=== PATIENT | male | born 1985 | race Caucasian/White ===

== ENCOUNTER 2017-12-07 07:47 | Emergency (ER) | payer OTHER ==
[~2017-12-07] VITALS: Ht 167.6 cm; Wt 94.3 kg
[2017-12-07] MEDS ORDERED: FLONASE 0.05%50 MCG NASAL (09:20)
[2017-12-07] MEDS ORDERED: MUCINEX D TABL1 EAC1 PO (09:20)
== END 2017-12-07 10:06 | disposition home or self-care (01) ==
LOC: ER 07:47 → EDBD 07:47 → ER 10:06
DX: J01.00 Acute maxillary sinusitis, unspecified (principal); J01.20 Acute ethmoidal sinusitis, unspecified; J01.10 Acute frontal sinusitis, unspecified